=== PATIENT | female | born 1980 | race Caucasian/White ===

== ENCOUNTER → 2016-09-04 | Outpatient (CLI) | payer BC ==
[~2016-09-04] MED LIST: /ONDA4TA OR; COLA100C PO; CYCL10TA PO; DYMI137S; LEVO175T2 PO; METF500T PO; NAPR220T8 PO; NAPR500T PO; NORCOTAB OR; OMEP20CA3 PO; PERC5TAB6 PO; SENO8.6T10 PO; VALI5TAB PO; thyroxine OR
== END | disposition home or self-care (01) ==
LOC: M HL 09:29
PROVIDERS: ATTEND Nurse Practitioner Family
DX: Z71.3 Dietary counseling and surveillance (principal); E11.9 Type 2 diabetes mellitus without complications

== ENCOUNTER 2018-07-04 08:02 | Day surgery (SDC) | payer BC ==
[2018-07-04] MEDS: NS 1,000 ML IV (07:00)
[2018-07-04] MEDS ORDERED: PROPOFOL 200 MG/20 ML VIAL As Ordered (08:42)
== END 2018-07-04 09:20 | disposition home or self-care (01) ==
LOC: M OPP 08:02
DX: R12 Heartburn (principal); K22.8 Other specified diseases of esophagus; K44.9 Diaphragmatic hernia without obstruction or gangrene; K31.89 Other diseases of stomach and duodenum
CPT/HCPCS: 43239

== ENCOUNTER 2018-07-16 14:34 | Emergency (ER) | payer BC ==
[2018-07-16] MEDS: NS 1,000 ML IV (14:59)
[2018-07-16] MEDS: METOCLOPRAMIDE INJ 10MG/2ML VIAL (J2765) IV (15:00)
[2018-07-16] MEDS: diphenhydrAMINE INJ 50MG/ML VIAL (J1200) IV (15:00)
[2018-07-16] MEDS: KETOROLAC 30 MG/ML VIAL (J1885) IV (15:00)
== END 2018-07-16 16:47 | disposition home or self-care (01) ==
LOC: M ED 14:34
DX: G43.909 Migraine, unspecified, not intractable, without status migrainosus (principal); J32.9 Chronic sinusitis, unspecified; J45.909 Unspecified asthma, uncomplicated; Z79.899 Other long term (current) drug therapy; Z79.84 Long term (current) use of oral hypoglycemic drugs
CPT/HCPCS: J1200

== ENCOUNTER → 2020-06-29 | Outpatient (CLI) | payer BC ==
[~2020-06-29] MED LIST changes: -/ONDA4TA OR; -COLA100C PO; +COLA100C5 PO; +CYCL-707 PO; -CYCL10TA PO; +DEXI60CA2; +FERR325T82 PO; +JANU100T PO; +LEVO150T7 PO; +MAXA5TAB11 PO; -METF500T PO; +METF500T13 PO; +NAPR-837 PO; +NAPR1TAB41 PO; -NAPR220T8 PO; -NAPR500T PO; +OMEP1CAP73 PO; -OMEP20CA3 PO; +ONDA-1 OR; +PANT40TA29 PO; +PERC5TAB12 PO; -PERC5TAB6 PO
[2020-06-29 09:44] LABS: HEMOGLOBIN A1c 6.8 %
== END ==
LOC: M LAB 08:15
PROVIDERS: ATTEND Nurse Practitioner Family
DX: E11.65 Type 2 diabetes mellitus with hyperglycemia (principal)

== ENCOUNTER → 2024-02-12 | Outpatient (CLI) | payer BC ==
[2024-02-12 11:01] LABS: BASO % 0.7 % (0.0-1.0); EOS # 0.1 10^3/uL (0.0-0.5); EOS % 1.2 % (0.0-3.0); HEMATOCRIT 37.9 % (36.0-47.0); LYMPH # 1.3 10^3/uL (1.5-5.0); LYMPH % 22.3 % (24.0-44.0); MEAN CORPUSCULAR HEMOGLOBIN 25.5 pg (27.0-33.0); MEAN CORPUSCULAR HGB CONC 31.7 g/dl (32.0-36.5); MEAN CORPUSCULAR VOLUME 80.5 fl (80.0-96.0); MONO # 0.4 10^3/uL (0.0-0.8); MONO % 7.1 % (2.0-8.0); NEUTROPHILS # 3.9 10^3/uL (1.5-8.5); NEUTROPHILS % 68.2 % (36.0-66.0); PLATELET COUNT, AUTOMATED 235 10^3/uL (150-450); RED BLOOD COUNT 4.71 10^6/uL (4.00-5.40); WHITE BLOOD COUNT 5.8 10^3/uL (4.0-10.0)
[2024-02-12 11:26] LABS: HEMOGLOBIN A1c 6.3 % (4.0-6.0)
[2024-02-12 11:29] LABS: CREATININE, URINE 50.8 MG/DL; MALB URINE SIEMENS < 3.0 MG/L; MAU/CREAT RATIO 5.9 MCG/MG (0.0-30.0)
[2024-02-12 11:30] LABS: ALBUMIN 3.7 G/DL (3.2-5.2); ALKALINE PHOSPHATASE 42 U/L (46-116); ALT/SGPT 25 U/L (7.0-40); AST/SGOT 14 U/L (<34); BILIRUBIN,TOTAL 0.4 MG/DL (0.3-1.2); BLOOD UREA NITROGEN 10 MG/DL (9-23); CALCIUM LEVEL 9.2 MG/DL (8.5-10.1); CARBON DIOXIDE LEVEL 27 MMOL/L (20-31); CHLORIDE LEVEL 106 MMOL/L (98-107); CHOLESTEROL LEVEL 101 MG/DL (<200); CHOLESTEROL RISK RATIO 2.99 (<5); CREATININE FOR GFR 0.73 MG/DL (0.55-1.30); GLOMERULAR FILTRATION RATE > 60.0 (>58); GLUCOSE, FASTING 115 MG/DL (60-100); HDL CHOLESTEROL 33.7 MG/DL (>40); LDL CHOLESTEROL 43.7 MG/DL (<100); NON-HDL-C 67.3 MG/DL; SODIUM LEVEL 138 MMOL/L (136-145); TOTAL PROTEIN 6.5 G/DL (5.7-8.2); TRIGLYCERIDES LEVEL 118 MG/DL (<150)
[2024-02-12 11:34] LABS: THYROID STIMULATING HORMONE 0.342 uIU/ML (0.55-4.78)
== END ==
LOC: M LAB 10:28
PROVIDERS: ATTEND Nurse Practitioner Family
DX: E11.9 Type 2 diabetes mellitus without complications (principal)

== ENCOUNTER → 2024-06-03 | Outpatient (CLI) | payer OTHER ==
[2024-06-03 11:23] LABS: FREE T4 1.43 NG/DL (0.89-1.76); THYROID STIMULATING HORMONE 1.398 uIU/ML (0.55-4.78)
== END ==
LOC: M LAB 10:01
PROVIDERS: ATTEND Nurse Practitioner Family
DX: E03.9 Hypothyroidism, unspecified (principal)